=== PATIENT | female | born 1970 | race Caucasian/White ===

== ENCOUNTER 2024-05-24 08:19 | Day surgery (SDC) | payer BC ==
[~2024-05-24 08:19] MED LIST: Midazolam 1 MG/ML 2 ML SDV ONE; Propofol 200 MG/20 ML SDV ONE; fentaNYL 50 MCG/ML SDV ONE
[2024-05-24] MEDS: Sodium Chloride 0.9% 1,000 ML IV SCH (09:17)
[2024-05-24] MEDS ORDERED: Propofol 200 MG/20 ML SDV ONE (09:35)
[2024-05-24 11:22] VITALS: BP 130/76; PULSE 77
== END 2024-05-24 11:28 | disposition home or self-care (01) ==
LOC: JP.SDS 08:19
PROVIDERS: ATTEND Surgery
DX: Z12.11 Encounter for screening for malignant neoplasm of colon (principal); K31.7 Polyp of stomach and duodenum; K22.89 Other specified disease of esophagus; K22.70 Barrett's esophagus without dysplasia
CPT/HCPCS: 00813; 43239; 45378; 88305; J2250; J2704; J3010; J7030